=== PATIENT | male | born 1985 | race American Indian/Alaskan Native ===

== ENCOUNTER 2016-05-27 19:25 | Emergency (ER) | payer SELFPAY ==
[2016-05-27 19:36] VITALS: BP 117/83
== END 2016-05-28 00:30 | disposition left against medical advice (07) ==
LOC: ED 19:25
DX: S89.91XA Unspecified injury of right lower leg, initial encounter (principal); X58.XXXA Exposure to other specified factors, initial encounter; Y93.9 Activity, unspecified; Y92.9 Unspecified place or not applicable; Y99.9 Unspecified external cause status; Z53.21 Procedure and treatment not carried out due to patient leaving prior to being seen by health care provider